=== PATIENT | male | born 1975 | race Caucasian/White ===

== ENCOUNTER 2024-05-21 22:38 | Emergency (ER) | payer SELFPAY ==
[~2024-05-21] VITALS: Ht 162.6 cm; Wt 65.3 kg
[2024-05-21 23:03] VITALS: BP 122/73
[2024-05-21] MEDS ORDERED: LIDOCAINE W/ EPINEPHRINE 10 MG/ML INJ STI ONE (23:05)
[2024-05-21] MEDS ORDERED: POVIDONE IODINE 0.5 OZ/BTL TOP ONE (23:05)
[2024-05-21 23:30] VITALS: BP 117/79
[2024-05-21] MEDS ORDERED: VIBRAMYCIN100 M2 PO (23:34)
[2024-05-21] MEDS ORDERED: DOXYCYCLINE HYCLATE 100 MG/CAP PO ONE (23:35)
[2024-05-22] VITALS: BP 117/79
== END 2024-05-22 | disposition home or self-care (01) | DRG 558 ==
LOC: ED 22:38
PROC: 0M9N3ZZ Drainage of Right Knee Bursa and Ligament, Percutaneous Approach (ICD-10-PCS; principal; 2024-05-21)
DX: M71.161 Other infective bursitis, right knee (principal); S80.212A Abrasion, left knee, initial encounter; S80.211A Abrasion, right knee, initial encounter; X58.XXXA Exposure to other specified factors, initial encounter

== ENCOUNTER 2024-05-26 11:13 | Emergency (ER) | payer SELFPAY ==
[~2024-05-26] VITALS: Ht 162.6 cm; Wt 65.5 kg
[~2024-05-26 11:13] MED LIST: VIBRAMYCIN100 M2 PO
[2024-05-26 11:42] VITALS: BP 127/73
[2024-05-26 11:45] VITALS: BP 123/84
[2024-05-26 12:45] LABS: BASO% 0.4 % (0-3); EOS% 1.6 % (0-8); HEMATOCRIT 40.6 % (39.0-50.0); HEMOGLOBIN 13.1 g/dl (14.0-18.0); IMMATURE GRANULOCYTES 1.9 % (0.0-5.0); MEAN CELL VOLUME 86.9 fL CALC (80.0-100.0); MEAN CORPUSCULAR HGB 28.1 pG CALC (26.0-32.0); MEAN CORPUSCULAR HGB CONC 32.3 g/dL CAL (32.0-36.0); MONO% 7.5 % (2-13); NEUT# 9.16 thou/uL (1.82-7.42); NEUT% 81.6 % (42-76); RED BLOOD COUNT 4.67 mill/uL (4.70-6.10); RED CELL DISTRI WIDTH 13.2 % (11.5-15.5)
[2024-05-26 13:01] LABS: INTERNATIONAL NORMALIZED RATIO 1.2 RATIO (0.7-1.3)
[2024-05-26 13:02] LABS: CREATININE 0.8 mg/dL (0.7-1.3); POTASSIUM 4.2 mmol/l (3.5-5.1)
[2024-05-26 13:13] LABS: PROTHROMBIN TIME 11.2 SECONDS (9.0-12.5)
[2024-05-26] MEDS ORDERED: CLINDAMYCIN PHOSPHATE 50 ML IV ONE (13:55)
[2024-05-26 15:57] VITALS: BP 123/84
== END 2024-05-26 15:21 | disposition short-term general hospital (02) | DRG 558 ==
LOC: ED 11:13 → ED-I 14:00 → ED 15:21
PROVIDERS: Family Medicine
PROC: 0M9N3ZZ Drainage of Right Knee Bursa and Ligament, Percutaneous Approach (ICD-10-PCS; principal; 2024-05-26)
DX: M71.161 Other infective bursitis, right knee (principal); B95.61 Methicillin susceptible Staphylococcus aureus infection as the cause of diseases classified elsewhere
CPT/HCPCS: J0736